=== PATIENT | female | born 1930 | race Caucasian/White ===

== ENCOUNTER 2017-04-30 08:55 | Outpatient (CLI) | payer MEDICARE, OTHER | END 2017-04-30 08:56 | disposition home or self-care (01) | LOC: BICMAMMO 08:55 | PROVIDERS: ATTEND Family Medicine | DX: Z12.31 Encounter for screening mammogram for malignant neoplasm of breast (principal); Z80.3 Family history of malignant neoplasm of breast | CPT/HCPCS: 77063; 77067 ==

== ENCOUNTER 2017-12-13 11:26 | Inpatient (IN) | payer MEDICARE, OTHER ==
[2017-12-13] MEDS ORDERED: Enoxaparin Sodium 60 MG/0.6 ML SYRINGE ONE (12:12)
[2017-12-13 12:23] LABS: #Eosinphils 0.1 thou/uL (0.0-0.7); #Lymphocytes 1.4 thou/uL (1.20-3.40); #Monocytes 0.5 thou/uL (0.11-0.59); #Neutrophils 5.2 thou/uL (1.40-6.50); %Basophils 0.6 % (0.0-1.0); %Eosinophils 1.2 % (0.0-10.0); %Monocytes 7.2 % (0.0-10.0); Hemoglobin 13.6 g/dL (12.0-16.0); Mean Corpuscular HGB CONC 32.2 g/dL (32.0-36.0); Mean Corpuscular Hemoglobin 30.4 pg (27.0-31.0); Mean Corpuscular Volume 94.5 fL (78.0-98.0); Mean Platelet Volume 7.7 fL (7.4-10.4); Platelet Count 313 thou/uL (130-400); RBC Distribution Width 11.7 % (11.5-14.5); Red Blood Cell (RBC) Count 4.49 mill/uL (4.20-5.40); White Blood Cell (WBC) Count 7.2 thou/uL (4.8-10.8)
[2017-12-13] MEDS ORDERED: Diltiazem 125 MG in Sodium Chloride 0.9% 100 ML IVPB SCH (12:30)
[2017-12-13 12:31] LABS: PTT 29.9 SEC (22.9-36.1)
[2017-12-13 12:32] LABS: INR-International Normal Ratio 1.1; Prothrombin Time 13.8 SEC (12.0-14.7)
[2017-12-13 12:48] LABS: ALT (SGPT) 11 U/L (8-55); AST (SGOT) 16 U/L (5-34); Albumin 4.1 g/dL (3.4-4.8); Alkaline Phosphatase 86 U/L (40-150); Anion Gap 11 mmol/L (10-20); BUN (Urea Nitrogen) 17 mg/dL (9.8-20.1); Bilirubin, Total 0.6 mg/dL (0.2-1.2); CK (CPK) 64 U/L (29-168); Calc. Creatinine Clearance 0 mL/min (70-130); Calcium 10.2 mg/dL (7.8-10.44); Carbon Dioxide 28 mmol/L (23-31); Chloride 105 mmol/L (98-107); Estimated GFR-MDRD 73; Globulin 3.4 g/dL (2.4-3.5); Glucose 112 mg/dL (83-110); Potassium 3.9 mmol/L (3.5-5.1); Protein, Total 7.5 g/dL (6.0-8.3); Sodium 140 mmol/L (136-145)
[2017-12-13 12:52] LABS: CKMB 3.7 ng/mL (0-6.6); Troponin I Less than 0.010 ng/mL (< 0.028)
--- NOTE | 2017-12-13 12:58 | RAD ---
CHEST 1 VIEW: HISTORY: Chest pain. COMPARISON: None available. FINDINGS: Cardiac silhouette is magnified and upper limits of normal in size. Pulmonary vasculature is unremar kable. Mediastinum is midline. No confluent airspace consolidation or evidence of pneumothorax. Ca rdiac monitor leads overlie the chest. IMPRESSION: No active cardiopulmonary abnormalities are demonstrated. POS: H
--- NOTE | 2017-12-13 14:19 | RAD ---
FRONTAL RADIOGRPAH CHEST: DATE: 12/13/2017. COMPARISON: Prior study on the same day. HISTORY: Syncope. FINDINGS: Heart and mediastinal contours demonstrate stable prominence of the cardiac silhouette. Stable incre ased linear interstitial density. No pneumothorax or pleural fluid. No focal consolidation or alveo lar edema. IMPRESSION: Stable appearance of the chest. POS: [facility]
--- NOTE | 2017-12-13 14:22 | HP ---
DATE OF ADMISSION: 12/13/2017 PRIMARY CARE PHYSICIAN: Jaydon Barker M.D. REASON FOR ADMISSION: Sent by primary care physician for new onset atrial fibrillation. HISTORY OF PRESENT ILLNESS: An 87-year-old female who has no significant medical history who went to see primary care physician today because she was subjectively feeling some UTI symptoms for the last 2-3 days. When primary care physician examined her, she was found with irregularity in her heart ra te, which was confirmed as atrial fibrillation after EKG done at primary care physician's office. Denson bsequently, this patient was transferred to emergency room for further evaluation. When she arrived to the emergency room, she was having atrial fibrillation with a slight RVR. She wa s given Cardizem bolus. After that, the patient had transient hypotension and syncope, which require d a few seconds of CPR in the emergency room, but the patient regained consciousness very quickly. A fter a few seconds chest compression, the patient was feeling soreness over her chest, but she did no t have any chest pain, palpitation, dizziness, syncope or shortness of breath before going to primary care physician's office. She did not have any fever. She denies any previous cardiac history. She denies any previous TIA or stroke. She denies any diabetes. The patient reports that by 87 years o f age, she is pretty much very active and she is able to do all routine activities of her life as wel l as yard work. She never had any dyspnea on exertion, orthopnea, PND or leg swelling. REVIEW OF SYSTEMS: The following complete review of systems was negative, unless otherwise mentioned in the HPI or below: Constitutional: Weight loss or gain, ability to conduct usual activities. Sk in: Rash, itching. Eyes: Double vision, pain. ENT/Mouth: Nose bleeding, neck stiffness, pain, te nderness. Cardiovascular: Palpitations, dyspnea on exertion, orthopnea. Respiratory: Shortness of breath, wheezing, cough, hemoptysis, fever or night sweats. Gastrointestinal: Poor appetite, abdom inal pain, heartburn, nausea, vomiting, constipation, or diarrhea. Genitourinary: Urgency, frequenc y, dysuria, nocturia. Musculoskeletal: Pain, swelling. Neurologic/Psychiatric: Anxiety, depressio n. Allergy/Immunologic: Skin rash, bleeding tendency. Please see my HPI for pertinent positive and negative. All other review of systems reviewed and negative except as mentioned in the HPI. PAST MEDICAL HISTORY: The patient reports that she has white coat hypertension, but she is not takin g any blood pressure medication because her blood pressure remains normal at home. PAST SURGICAL HISTORY: Reviewed and negative. PAST PSYCHIATRIC HISTORY: Reviewed and negative. SOCIAL HISTORY: The patient is , lives at home by herself. She has 2 sons who lives nearby [facility] as well as in [facility]. She denies any tobacco, alcohol or illicit drug abuse. FAMILY HISTORY: The patient denies any family history of coronary artery disease, stroke or cancer. ALLERGIES: No known drug allergy. CURRENT HOME MEDICATIONS: The patient is taking over the counter multivitamin 1 tablet daily, vitami n C 1 tablet daily, vitamin D3 one tablet daily and aspirin 81 mg daily. EMERGENCY ROOM COURSE: The patient was given Cardizem bolus 20 mg IV push, aspirin 324 mg, Lovenox 1 mg per kg. PHYSICAL EXAMINATION: VITAL SIGNS: On arrival, blood pressure 140/114, but after Cardizem bolus, her blood pressure droppe d to 69/48. At one point, her heart rate was 145, but when I saw, at that time her heart rate is 72 and irregular, respiratory rate 18, temperature 98.5, saturation 99% on room air, weight 63.5 kilogra ms. GENERAL: The patient is currently alert, awake, in no obvious acute distress. HEAD: Normocephalic, atraumatic. EYES: Pupils round and reactive to light. Extraocular muscle intact. ENT: Oropharynx within normal limits. Moist mucous membranes. No oral lesion, no pharyngeal erythe ma, no exudate. NECK: Supple. No JVD, no thyromegaly, no carotid bruit. LUNGS: Clear to auscultation without any rhonchi or rales. CARDIAC: S1, S2 irregularly irregular without any significant murmur. No gallop, no rub. ABDOMEN: Soft, bowel sounds present, nontender, nondistended. No organomegaly, no mass, no suprapub ic tenderness. BACK: Unremarkable. No CVA tenderness. EXTREMITIES: Upper extremities, passive movement of all joints are normal. Lower extremities, no ed tayler. Good distal pulsation. SKIN: No skin rash. HEMATOLOGICAL: No lymphadenopathy. NEUROLOGIC: Nonfocal examination. Speech, normal. Motor and sensation within normal limit. Reflex es symmetrical. Plantar bilateral flexor. SIGNIFICANT LABORATORY DATA: EKG initially showed atrial fibrillation with RVR. Subsequently, EKG s howed atrial fibrillation with a controlled ventricular response. CBC, WBC 7.2, hemoglobin 13.6, lakshmi telet 313,000. BMP, sodium 140, potassium 3.9, chloride 105, carbon dioxide 28, anion gap 11, BUN 17 , creatinine 0.75, glucose 112, calcium 10.2. LFT, AST 16, ALT 11, alkaline phosphatase 86, albumin 4.1. CK 64, CK-MB 3.7. Troponin I less than 0.010. BNP 246. INR 1.1. Chest x-ray based on my rev iew, no acute cardiopulmonary process. ASSESSMENT AND PLAN: 1. New onset atrial fibrillation. This patient has confirmed finding of atrial fibrillation on EKG. Initially, she was in rapid ventricular response, but after Cardizem bolus, she had transient hypot ension and syncopal episode. Currently, her rate is under control, but still she is in atrial fibril lation, onset is not certain. This patient has a high CHADS2-VASc score based on her age of 87, fema le sex, she has at least [address], she is at high risk for cardioembolic event. Risk a nd benefit of her long-term anticoagulation discussed with the patient. At this point, we will start with Lovenox 1 mg per kg subcu twice daily. Upon discharge, we will consider Eliquis. The patient' s rate is under control, so we will start metoprolol 25 mg twice daily and monitor on telemetry floor . We will obtain echocardiography to assess ejection fraction and other structural abnormality. We will check free T3 and free T4. We will do serial cardiac enzymes x2 to rule out acute coronary synd maximiliano. Cardiology will be consulted. 2. Elevated BNP, probably related with diastolic dysfunction from atrial fibrillation. We will chec k echocardiography. 3. Urinary tract infection symptoms. The patient subjectively feels urinary tract infection. We wi ll check urinalysis and urine culture. 4. Deep venous thrombosis prophylaxis. The patient is already on full dose of Lovenox therapy. 5. Gastrointestinal prophylaxis. Pepcid 20 mg p.o. b.i.d. 6. Code status: The patient is full code. The patient's son is surrogate decision maker. Disposition plan based on clinical course. We are expecting the patient's stay in hospital more than 48 hours. Plan of care discussed with the patient in detail at bedside.
[2017-12-13] MEDS ORDERED: Ondansetron PF 4 MG/2 ML Vial IVP PRN ×2 (15:19→15:26)
[2017-12-13] MEDS ORDERED: Ondansetron ODT 4 MG TAB SL PRN (15:19)
[2017-12-13] MEDS ORDERED: Acetaminophen 325 MG TAB PO PRN ×2 (15:19→15:26)
[2017-12-13] MEDS ORDERED: Bisacodyl 5 MG TAB PO PRN (15:26)
[2017-12-13] MEDS ORDERED: Sodium Chloride 0.65% Nasal 44 ML BOT EA NARE PRN (15:26)
[2017-12-13] MEDS ORDERED: Artificial Tears 18 DROP/0.9 ML EA EYE PRN (15:26)
[2017-12-13] MEDS ORDERED: Eucerin (Mineral Oil/Petrolatum,White) 30 gm Jar TOP PRN (15:26)
[2017-12-13] MEDS ORDERED: Ondansetron ODT 4 MG TAB PO PRN (15:26)
[2017-12-13] MEDS ORDERED: HYDROcodone/Acetaminophen 5/325 mg Tablet PO PRN (15:26)
[2017-12-13] MEDS ORDERED: Zolpidem Tartrate 5 MG TAB PO PRN (15:26)
[2017-12-13] MEDS ORDERED: Labetalol HCl 100 MG/20 ML VIAL SLOW IVP PRN (15:26)
[2017-12-13] MEDS ORDERED: Bisacodyl 10 MG SUPP PR PRN (15:26)
[2017-12-13] MEDS ORDERED: Cepastat Lozenges 1 LOZ PO PRN (15:26)
[2017-12-13] MEDS ORDERED: Loratadine 10 MG TAB PO PRN (15:26)
[2017-12-13] MEDS ORDERED: Diabetic Tussin 200 MG/10 ML UDCUP PO PRN (15:26)
[2017-12-13] MEDS ORDERED: Loperamide HCl 2 MG CAP PO PRN (15:26)
[2017-12-13] MEDS ORDERED: Senokot S 8.6-50 MG TAB PO PRN (15:26)
[2017-12-13] MEDS ORDERED: Calcium Carbonate 500 MG ChewTAB PO PRN (15:26)
[2017-12-13 15:31] VITALS: BMI 22.6
[2017-12-13 15:51] LABS: Troponin I Less than 0.010 ng/mL (< 0.028)
[2017-12-13 15:52] LABS: Bilirubin Negative (Negative); Blood, Urine Moderate (Negative); Clarity CLOUDY (Clear); Glucose, Urine (Dipstick) Negative (Negative); Leukocyte Large (Negative); Nitrite Negative (Negative); Protein, Urine (Dipstick) 30 mg/dL (Neg-Trace); Specific Gravity, Urine 1.014 (1.002-1.036); Urobilinogen 0.2 mg/dL (0.2-1.0)
[2017-12-13 15:55] LABS: Bacteria/HPF 2+ HPF (None Seen); Hyaline Casts/LPF 0-3 HYALINE CAST LPF (0-3 Hyaline); Pathc Cast-AUWi Flag 0.72 (0-2.49); Squamous Epithelial None Seen HPF (0-3)
[2017-12-13 16:14] LABS: Free T4 (Free Thyroxine) 1.08 ng/dL (0.70-1.48)
[2017-12-13 18:59] LABS: Troponin I Less than 0.010 ng/mL (< 0.028)
[2017-12-13] MEDS: Metoprolol Tartrate 25 MG TAB PO SCH (21:14)
[2017-12-13] MEDS: Famotidine 20 MG TAB PO SCH (21:14)
[2017-12-13] MEDS ORDERED: Enoxaparin Sodium 60 MG/0.6 ML SYRINGE SC SCH (23:00)
--- NOTE | 2017-12-14 04:07 | CON ---
DATE OF CONSULTATION: 12/13/2017 HISTORY OF PRESENT ILLNESS: Maria E Riley is a pleasant 87-year-old white female patient of Dr. Fany beatty. She went to see him today for UTI symptoms. She was found to be tachycardic with a fast heart r ate and EKG showed atrial fibrillation. She was sent to the emergency room. In the emergency room, she was given Cardizem 20 mg bolus. After that, she had transient hypotension and syncope and appare ntly required a few seconds of CPR and then she regained consciousness very quickly. She denies any history of chest pain, shortness of breath, syncope, PND, orthopnea, or leg edema. At times, she may become mildly short of breath with digging holes. PAST MEDICAL HISTORY: Blood pressure has been elevated in the past, but apparently is normal at home and so she is not taking antihypertensives. No history of diabetes or hypercholesterolemia. MEDICATIONS: Aspirin 81 daily. hypotension and bradycardia with Cardizem 20 mg IV. SOCIAL HISTORY: She does not smoke or drink. REVIEW OF SYSTEMS: Twelve-point review of systems, otherwise unremarkable. PHYSICAL EXAMINATION: VITAL SIGNS: Blood pressure 159/79, pulse of 109 regularly irregular. HEENT: PERRL. NECK: Supple. CHEST: Clear. CARDIAC: S1 and S2 are normal without any S3, S4 or murmurs. ABDOMEN: Normal bowel sounds without tenderness, organomegaly. EXTREMITIES: Revealed no clubbing, cyanosis, or edema. NEUROLOGIC: Grossly intact. SKIN: Warm and dry. LABORATORY DATA: EKG revealed atrial fibrillation with rate of 115 per minute. Another EKG revealed atrial fibrillation with a rate of 147 per minute. Sodium 140, potassium 3.9, chloride 105, carbon dioxide 28, BUN 17, creatinine 0.75. BNP 246.0. Troponin I is normal x3. TSH, T4, and free T3 are normal. CBC is normal. Urinalysis reveals 2+ bacteria with greater than 50 white cells. IMPRESSION: 1. Atrial fibrillation, unknown duration. Even with heart rates up to 147 per minute. She is asymp tomatic and certainly may have to had this for months or years. 2. Hypotension and bradycardia with Cardizem 20 mg IV. 3. Probable hypertension. 4. Urinary tract infection. PLAN: Situation was discussed with the patient and her daughter. Echocardiogram will be performed t o assess left ventricular function. She will be started on low dose metoprolol and hopes of having b sherita rate control. Currently, she is on Lovenox 1 mg/kg b.i.d., but consideration should be given t o an oral anticoagulant. We discussed electrical cardioversion; however, she appears to be totally a symptomatic with her atrial fibrillation and probably rate control and anticoagulation for the only t reatment that is needed.
[2017-12-14 05:36] LABS: #Eosinphils 0.1 thou/uL (0.0-0.7); #Lymphocytes 1.7 thou/uL (1.20-3.40); #Monocytes 0.6 thou/uL (0.11-0.59); #Neutrophils 4.3 thou/uL (1.40-6.50); %Basophils 0.4 % (0.0-1.0); %Lymphocytes 25.3 % (21.0-51.0); %Monocytes 8.4 % (0.0-10.0); %Neutrophils 63.9 % (42.0-75.0); Hemoglobin 12.7 g/dL (12.0-16.0); Mean Corpuscular HGB CONC 32.6 g/dL (32.0-36.0); Mean Corpuscular Hemoglobin 30.9 pg (27.0-31.0); Mean Corpuscular Volume 94.5 fL (78.0-98.0); Mean Platelet Volume 7.7 fL (7.4-10.4); Platelet Count 303 thou/uL (130-400); RBC Distribution Width 11.7 % (11.5-14.5); Red Blood Cell (RBC) Count 4.12 mill/uL (4.20-5.40); White Blood Cell (WBC) Count 6.7 thou/uL (4.8-10.8)
[2017-12-14 05:51] LABS: Anion Gap 10 mmol/L (10-20); BUN (Urea Nitrogen) 15 mg/dL (9.8-20.1); Calc. Creatinine Clearance 59 mL/min (70-130); Calcium 9.4 mg/dL (7.8-10.44); Carbon Dioxide 31 mmol/L (23-31); Chloride 104 mmol/L (98-107); Estimated GFR-MDRD 80; Glucose 94 mg/dL (83-110); Potassium 4.1 mmol/L (3.5-5.1); Sodium 141 mmol/L (136-145)
[2017-12-14] MEDS: cefTRIAXone\\ROCEPHIN 1 GM in Sodium Chloride 0.9% 100 ML IVPB SCH (06:47)
[2017-12-14] MEDS: Famotidine 20 MG TAB PO SCH ×2 (08:25→22:17)
[2017-12-14] MEDS: Metoprolol Tartrate 25 MG TAB PO SCH (08:25)
[2017-12-14] MEDS ORDERED: Enoxaparin Sodium 60 MG/0.6 ML SYRINGE SC SCH (09:00)
--- NOTE | 2017-12-14 09:23 | PDOC.PN ---
- Subjective Encounter Start Date: 12/14/17 Encounter Start Time: 07:20 -: old records requested/rev Patient seen and examined. No new complaints. No overnight events this morning she was in RVR, but she was asymptomatic - Objective Resuscitation Status: Resuscitation Status FULL:Full Resuscitation MAR Reviewed: Yes Vital Signs & Weight: Vital Signs (12 hours) Temp Pulse Resp BP Pulse Ox 12/14/17 08:00 97.8 F 107 H 18 147/73 H 99 12/14/17 04:00 98.1 F 83 16 130/82 96 12/14/17 00:00 98.6 F 86 18 137/77 96 Weight Weight 133 lb 12.8 oz I&O: 12/13/17 12/14/17 12/15/17 06:59 06:59 06:59 Intake Total 250 Balance 250 Result Diagrams: 12/14/17 05:12 12/14/17 05:12 EKG Reviewed by me: Yes (afib with rvr) Phys Exam - Physical Examination Constitutional: NAD HEENT: PERRLA, moist MMs, sclera anicteric Neck: no JVD, supple Respiratory: no wheezing, no rales, no rhonchi Cardiovascular: no significant murmur, irregular Gastrointestinal: soft, non-tender, no distention, positive bowel sounds Musculoskeletal: no edema, pulses present Neurological: non-focal, normal sensation, moves all 4 limbs Lymphatic: no nodes Psychiatric: normal affect, A&O x 3 Skin: no rash, normal turgor Dx/Plan (1) New onset atrial fibrillation Code(s): I48.91 - UNSPECIFIED ATRIAL FIBRILLATION Status: Acute Comment: with intermittent RVR (2) UTI (urinary tract infection) Status: Acute - Plan cont current plan of care, continue antibiotics * cardiology recommendation noted * continue lovenox * will start rocephin for UTI * she may need cardioversion vs antiarrythmic meds * continue metoprolol 50 mg po bid * echo will be done today. Review of Systems - Review of Systems ENT: negative: Ear Pain, Ear Discharge, Nose Pain, Nose Discharge, Nose Congestion, Mouth Pain, Mouth Swelling, Throat Pain, Throat Swelling, Other Respiratory: negative: Cough, Dry, Shortness of Breath, Hemoptysis, SOB with Excertion, Pleuritic Pain, Sputum, Wheezing Cardiovascular: negative: chest pain, palpitations, orthopnea, paroxysmal nocturnal dyspnea, edema, light headedness, other Gastrointestinal: negative: Nausea, Vomiting, Abdominal Pain, Diarrhea, Constipation, Melena, Hematochezia, Other Genitourinary: Dysuria, Frequency. negative: Incontinence, Hematuria, Retention , Other Musculoskeletal: negative: Neck Pain, Shoulder Pain, Arm Pain, Back Pain, Hand Pain, Leg Pain, Foot Pain, Other - Medications/Allergies Allergies/Adverse Reactions: Allergies Allergy/AdvReac Type Severity Reaction Status Date / Time diltiazem [From Cardizem] Allergy Verified 12/13/17 18:46 Medications: Current Medications Acetaminophen (Tylenol) 650 mg PO Q4H PRN PRN Reason: Headache/Fever/Mild Pain (1-3) Hydrocodone Bitart/Acetaminophen ([place] 5/325) 1 tab PO Q4H PRN PRN Reason: Moderate Pain (4-6) Artificial Tears (Tears Naturale) 2 drop EA EYE PRN PRN PRN Reason: Dry Eyes Bisacodyl (Dulcolax) 10 mg PO DAILYPRN PRN PRN Reason: Constipation Bisacodyl (Dulcolax) 10 mg CA DAILYPRN PRN PRN Reason: Constipation Calcium Carbonate (Tums) 1,000 mg PO Q4H PRN PRN Reason: Heartburn or Indigestion Enoxaparin Sodium (Lovenox) 60 mg SC 0900,2100 [facility] Last Admin: 12/14/17 08:24 Dose: 60 mg Famotidine (Pepcid) 20 mg PO BID [facility] Last Admin: 12/14/17 08:25 Dose: 20 mg Guaifenesin (Robitussin Sf) 200 mg PO Q4H PRN PRN Reason: Cough Ceftriaxone Sodium 1 gm/ (Sodium Chloride) 100 mls @ 200 mls/hr IVPB Q24HR [facility] Last Admin: 12/14/17 06:47 Dose: 100 mls Labetalol HCl (Normodyne) 10 mg SLOW IVP Q4H PRN PRN Reason: SBP Greater Than 170 Loperamide HCl (Imodium) 2 mg PO PRN PRN PRN Reason: Diarrhea/Loose Stools Loratadine (Claritin) 10 mg PO DAILYPRN PRN PRN Reason: Sinus Symptoms Metoprolol Tartrate (Lopressor) 25 mg PO BID [facility] Last Admin: 12/14/17 08:25 Dose: 25 mg Mineral Oil/White Petrolatum (Eucerin Cream) 0 gm TOP BIDPRN PRN PRN Reason: Dry Skin Ondansetron HCl (Zofran Odt) 4 mg PO Q6H PRN PRN Reason: Nausea/Vomiting Ondansetron HCl (Zofran) 4 mg IVP Q6H PRN PRN Reason: Nausea/Vomiting Senna/Docusate Sodium (Senokot S) 2 tab PO BID PRN PRN Reason: Constipation Sodium Chloride ([place] Nasal [place] 0.65%) 0 ml EA NARE QIDPRN PRN PRN Reason: Nasal Congestion Throat Lozenges (Cepastat Lozenges) 1 ameena PO Q2H PRN PRN Reason: Sore Throat Zolpidem Tartrate (Ambien) 5 mg PO HSPRN PRN PRN Reason: Insomnia
[2017-12-14] MEDS ORDERED: Metoprolol Tartrate 50 MG TAB PO SCH (21:00)
[2017-12-14] MEDS: Metoprolol Tartrate 50 MG TAB PO SCH (22:19)
[2017-12-15 05:51] LABS: Platelet Count 289 thou/uL (130-400)
[2017-12-15] MEDS: cefTRIAXone\\ROCEPHIN 1 GM in Sodium Chloride 0.9% 100 ML IVPB SCH (06:06)
[2017-12-15] MEDS: Rivaroxaban 10 MG TAB PO SCH (08:19)
[2017-12-15] MEDS: Metoprolol Tartrate 50 MG TAB PO SCH (08:20)
[2017-12-15] MEDS: Famotidine 20 MG TAB PO SCH ×2 (08:20→20:33)
--- NOTE | 2017-12-15 09:58 | PDOC.PN ---
- Subjective Encounter Start Date: 12/15/17 Encounter Start Time: 08:00 Patient seen and examined. No new complaints. No overnight events - Objective Resuscitation Status: Resuscitation Status FULL:Full Resuscitation MAR Reviewed: Yes Vital Signs & Weight: Vital Signs (12 hours) Temp Pulse Resp BP Pulse Ox 12/15/17 07:45 98 F 102 H 18 169/93 H 96 12/15/17 04:00 98.0 F 84 16 133/86 95 Weight Weight 135 lb 8 oz I&O: 12/14/17 12/15/17 12/16/17 06:59 06:59 06:59 Intake Total 250 1750 Balance 250 1750 Result Diagrams: 12/15/17 05:07 12/14/17 05:12 Radiology Reviewed by me: Yes (echo, MR, systolic dysfunction) EKG Reviewed by me: Yes (afib) Phys Exam - Physical Examination Constitutional: NAD HEENT: PERRLA, moist MMs, sclera anicteric Neck: no JVD, supple Respiratory: no wheezing, no rales, no rhonchi Cardiovascular: no significant murmur, irregular Gastrointestinal: soft, non-tender, no distention, positive bowel sounds Musculoskeletal: no edema, pulses present Neurological: non-focal, normal sensation, moves all 4 limbs Psychiatric: normal affect, A&O x 3 Skin: no rash, normal turgor Dx/Plan (1) New onset atrial fibrillation Code(s): I48.91 - UNSPECIFIED ATRIAL FIBRILLATION Status: Acute Comment: with intermittent RVR (2) UTI (urinary tract infection) Status: Acute (3) Elevated brain natriuretic peptide (BNP) level Code(s): R79.89 - OTHER SPECIFIED ABNORMAL FINDINGS OF BLOOD CHEMISTRY Status : Acute (4) Moderate mitral regurgitation Code(s): I34.0 - NONRHEUMATIC MITRAL (VALVE) INSUFFICIENCY Status: Acute (5) Systolic dysfunction Code(s): I51.9 - HEART DISEASE, UNSPECIFIED Status: Acute - Plan cont current plan of care, plan discussed w/ family, continue antibiotics * metoprolol dose increased * started on xarelto * medication reviewed as below * symptomatic treatment * discussed with daughter * continue rocephin. * add lisinopril Review of Systems - Review of Systems Eyes: negative: Pain, Vision Change, Conjunctivae Inflammation, Eyelid Inflammation, Redness, Other ENT: negative: Ear Pain, Ear Discharge, Nose Pain, Nose Discharge, Nose Congestion, Mouth Pain, Mouth Swelling, Throat Pain, Throat Swelling, Other Respiratory: negative: Cough, Dry, Shortness of Breath, Hemoptysis, SOB with Excertion, Pleuritic Pain, Sputum, Wheezing Cardiovascular: negative: chest pain, palpitations, orthopnea, paroxysmal nocturnal dyspnea, edema, light headedness, other Gastrointestinal: negative: Nausea, Vomiting, Abdominal Pain, Diarrhea, Constipation, Melena, Hematochezia, Other Genitourinary: negative: Dysuria, Frequency, Incontinence, Hematuria, Retention , Other Musculoskeletal: negative: Neck Pain, Shoulder Pain, Arm Pain, Back Pain, Hand Pain, Leg Pain, Foot Pain, Other - Medications/Allergies Allergies/Adverse Reactions: Allergies Allergy/AdvReac Type Severity Reaction Status Date / Time diltiazem [From [facility]] Allergy Verified 12/13/17 18:46 Medications: Current Medications Acetaminophen (Tylenol) 650 mg PO Q4H PRN PRN Reason: Headache/Fever/Mild Pain (1-3) Hydrocodone Bitart/Acetaminophen ([place] 5/325) 1 tab PO Q4H PRN PRN Reason: Moderate Pain (4-6) Artificial Tears (Tears Naturale) 2 drop EA EYE PRN PRN PRN Reason: Dry Eyes Bisacodyl (Dulcolax) 10 mg PO DAILYPRN PRN PRN Reason: Constipation Bisacodyl (Dulcolax) 10 mg CA DAILYPRN PRN PRN Reason: Constipation Calcium Carbonate (Tums) 1,000 mg PO Q4H PRN PRN Reason: Heartburn or Indigestion Famotidine (Pepcid) 20 mg PO BID [facility] Last Admin: 12/15/17 08:20 Dose: 20 mg Guaifenesin (Robitussin Sf) 200 mg PO Q4H PRN PRN Reason: Cough Ceftriaxone Sodium 1 gm/ (Sodium Chloride) 100 mls @ 200 mls/hr IVPB Q24HR [facility] Last Admin: 12/15/17 06:06 Dose: 100 mls Labetalol HCl (Normodyne) 10 mg SLOW IVP Q4H PRN PRN Reason: SBP Greater Than 170 Loperamide HCl (Imodium) 2 mg PO PRN PRN PRN Reason: Diarrhea/Loose Stools Loratadine (Claritin) 10 mg PO DAILYPRN PRN PRN Reason: Sinus Symptoms Metoprolol Tartrate (Lopressor) 75 mg PO BID [facility] Last Admin: 12/15/17 08:20 Dose: 75 mg Mineral Oil/White Petrolatum (Eucerin Cream) 0 gm TOP BIDPRN PRN PRN Reason: Dry Skin Ondansetron HCl (Zofran Odt) 4 mg PO Q6H PRN PRN Reason: Nausea/Vomiting Ondansetron HCl (Zofran) 4 mg IVP Q6H PRN PRN Reason: Nausea/Vomiting Rivaroxaban (Xarelto) 20 mg PO DAILY [facility] Last Admin: 12/15/17 08:19 Dose: 20 mg Senna/Docusate Sodium (Senokot S) 2 tab PO BID PRN PRN Reason: Constipation Sodium Chloride ([place] Nasal [place] 0.65%) 0 ml EA NARE QIDPRN PRN PRN Reason: Nasal Congestion Throat Lozenges (Cepastat Lozenges) 1 ameena PO Q2H PRN PRN Reason: Sore Throat Zolpidem Tartrate (Ambien) 5 mg PO HSPRN PRN PRN Reason: Insomnia
[2017-12-15] MEDS: Metoprolol Tartrate 100 MG TAB PO SCH (20:33)
[2017-12-16 05:03] VITALS: TEMP 97.9
[2017-12-16] MEDS: cefTRIAXone\\ROCEPHIN 1 GM in Sodium Chloride 0.9% 100 ML IVPB SCH (05:13)
[2017-12-16] MEDS: Metoprolol Tartrate 100 MG TAB PO SCH (08:41)
[2017-12-16] MEDS: Rivaroxaban 10 MG TAB PO SCH (08:42)
[2017-12-16] MEDS: Famotidine 20 MG TAB PO SCH (08:42)
[2017-12-16] MEDS ORDERED: Lisinopril 5 MG TAB PO SCH (09:00)
--- NOTE | 2017-12-16 09:46 | PDOC.PN ---
- Subjective Encounter Start Date: 12/16/17 Encounter Start Time: 07:05 Patient seen and examined. No new complaints. No overnight events - Objective Resuscitation Status: Resuscitation Status FULL:Full Resuscitation MAR Reviewed: Yes Vital Signs & Weight: Vital Signs (12 hours) Temp Pulse Resp BP Pulse Ox 12/16/17 08:40 92 12/16/17 04:00 97.9 F 76 16 140/70 93 L 12/16/17 00:00 98 F 81 16 132/67 92 L Weight Weight 138 lb 14.4 oz I&O: 12/15/17 12/16/17 12/17/17 06:59 06:59 06:59 Intake Total 1750 1760 Balance 1750 1760 Result Diagrams: 12/15/17 05:07 12/14/17 05:12 EKG Reviewed by me: Yes Phys Exam - Physical Examination Constitutional: NAD HEENT: PERRLA, moist MMs, sclera anicteric Neck: no JVD, supple Respiratory: no wheezing, no rales, no rhonchi Cardiovascular: no significant murmur, irregular Gastrointestinal: soft, non-tender, no distention, positive bowel sounds Musculoskeletal: no edema, pulses present Neurological: non-focal, normal sensation, moves all 4 limbs Psychiatric: normal affect, A&O x 3 Skin: no rash, normal turgor Dx/Plan (1) New onset atrial fibrillation Code(s): I48.91 - UNSPECIFIED ATRIAL FIBRILLATION Status: Acute Comment: with intermittent RVR (2) UTI (urinary tract infection) Status: Acute (3) Elevated brain natriuretic peptide (BNP) level Code(s): R79.89 - OTHER SPECIFIED ABNORMAL FINDINGS OF BLOOD CHEMISTRY Status : Acute (4) Moderate mitral regurgitation Code(s): I34.0 - NONRHEUMATIC MITRAL (VALVE) INSUFFICIENCY Status: Acute (5) Systolic dysfunction Code(s): I51.9 - HEART DISEASE, UNSPECIFIED Status: Acute - Plan cont current plan of care, continue antibiotics * medication reviewed as below * symptomatic treatment * see discharge marlen. Review of Systems - Review of Systems ENT: negative: Ear Pain, Ear Discharge, Nose Pain, Nose Discharge, Nose Congestion, Mouth Pain, Mouth Swelling, Throat Pain, Throat Swelling, Other Respiratory: negative: Cough, Dry, Shortness of Breath, Hemoptysis, SOB with Excertion, Pleuritic Pain, Sputum, Wheezing Cardiovascular: negative: chest pain, palpitations, orthopnea, paroxysmal nocturnal dyspnea, edema, light headedness, other Gastrointestinal: negative: Nausea, Vomiting, Abdominal Pain, Diarrhea, Constipation, Melena, Hematochezia, Other Genitourinary: negative: Dysuria, Frequency, Incontinence, Hematuria, Retention , Other Musculoskeletal: negative: Neck Pain, Shoulder Pain, Arm Pain, Back Pain, Hand Pain, Leg Pain, Foot Pain, Other - Medications/Allergies Allergies/Adverse Reactions: Allergies Allergy/AdvReac Type Severity Reaction Status Date / Time diltiazem [From Cardizem] Allergy Verified 12/13/17 18:46 Medications: Current Medications Acetaminophen (Tylenol) 650 mg PO Q4H PRN PRN Reason: Headache/Fever/Mild Pain (1-3) Hydrocodone Bitart/Acetaminophen ([place]oddard 5/325) 1 tab PO Q4H PRN PRN Reason: Moderate Pain (4-6) Artificial Tears (Tears Naturale) 2 drop EA EYE PRN PRN PRN Reason: Dry Eyes Bisacodyl (Dulcolax) 10 mg PO DAILYPRN PRN PRN Reason: Constipation Bisacodyl (Dulcolax) 10 mg ID DAILYPRN PRN PRN Reason: Constipation Calcium Carbonate (Tums) 1,000 mg PO Q4H PRN PRN Reason: Heartburn or Indigestion Famotidine (Pepcid) 20 mg PO BID [facility] Last Admin: 12/16/17 08:42 Dose: 20 mg Guaifenesin (Robitussin Sf) 200 mg PO Q4H PRN PRN Reason: Cough Ceftriaxone Sodium 1 gm/ (Sodium Chloride) 100 mls @ 200 mls/hr IVPB Q24HR [facility] Last Admin: 12/16/17 05:13 Dose: 100 mls Labetalol HCl (Normodyne) 10 mg SLOW IVP Q4H PRN PRN Reason: SBP Greater Than 170 Lisinopril (Zestril) 5 mg PO DAILY [facility] Last Admin: 12/16/17 08:40 Dose: 5 mg Loperamide HCl (Imodium) 2 mg PO PRN PRN PRN Reason: Diarrhea/Loose Stools Loratadine (Claritin) 10 mg PO DAILYPRN PRN PRN Reason: Sinus Symptoms Metoprolol Tartrate (Lopressor) 100 mg PO BID [facility] Last Admin: 12/16/17 08:41 Dose: 100 mg Mineral Oil/White Petrolatum (Eucerin Cream) 0 gm TOP BIDPRN PRN PRN Reason: Dry Skin Ondansetron HCl (Zofran Odt) 4 mg PO Q6H PRN PRN Reason: Nausea/Vomiting Ondansetron HCl (Zofran) 4 mg IVP Q6H PRN PRN Reason: Nausea/Vomiting Rivaroxaban (Xarelto) 20 mg PO DAILY [facility] Last Admin: 12/16/17 08:42 Dose: 20 mg Senna/Docusate Sodium (Senokot S) 2 tab PO BID PRN PRN Reason: Constipation Sodium Chloride ([employer] Nasal [place] 0.65%) 0 ml EA NARE QIDPRN PRN PRN Reason: Nasal Congestion Throat Lozenges (Cepastat Lozenges) 1 ameena PO Q2H PRN PRN Reason: Sore Throat Zolpidem Tartrate (Ambien) 5 mg PO HSPRN PRN PRN Reason: Insomnia
[2017-12-16 10:39] VITALS: BP 153/89
--- NOTE | 2017-12-16 11:44 | DIS ---
DATE OF ADMISSION: 12/13/2017 DATE OF DISCHARGE: 12/16/2017 PRIMARY CARE PHYSICIAN: Jaydon Barker M.D. DISCHARGE DISPOSITION: Home. PRIMARY DISCHARGE DIAGNOSES: New onset atrial fibrillation with rapid ventricular response, urinary tract infection, moderate mitral regurgitation and systolic dysfunction. SECONDARY DISCHARGE DIAGNOSIS: None. PRIMARY PROCEDURE AND OPERATION: None. RADIOLOGICAL INVESTIGATION: Chest x-ray was normal. Echocardiography showed moderate mitral regurgi tation and EF of 45%-50%. SIGNIFICANT LABORATORY DATA: WBC 6.7, hemoglobin 12.7, platelets 303. INR 1.1. Sodium 141, potassi um 4.1, BUN 15, creatinine 0.70, calcium 9.4. Cardiac enzymes negative x3. BNP 246.0. Thyroid func tion test normal. Urinalysis suggestive of UTI. Urine culture grew Streptococcus. DISCHARGE MEDICATIONS: Ciprofloxacin 500 mg p.o. b.i.d. for 5 days, lisinopril 5 mg p.o. daily, Lopr essor 100 mg p.o. b.i.d., Xarelto 20 mg p.o. daily. CONTRAINDICATIONS: None. CODE STATUS: FULL CODE. INPATIENT CONSULTANTS: Dr. Proctor was following while in hospital. TEST RESULTS PENDING ON DISCHARGE: None. ALLERGIES: CARDIZEM. DISCHARGE PLAN: Post hospital, the patient will follow up with Dr. Proctor and primary care corey godoy as instructed. HOSPITAL COURSE: An 87-year-old female who has no medical problems. She went to see primary care ph ysician for her recent UTI symptoms. On examination, primary care physician discovered irregular hea rt rate and the EKG showed atrial fibrillation with RVR. The patient was sent to ER. Patient was gi erika Cardizem bolus and after that the patient had transient hypotension and syncope and required diez sient CPR and patient regained consciousness very quickly. Subsequently, the patient did not require any Cardizem drip or any other calcium channel max, but patient's rate was controlled with metop rolol. We increased dose from 25-100 mg p.o. b.i.d. with this patient. Heart rate is under control. For chronic anticoagulation, we started initially Lovenox and subsequently changed to Xarelto. Nia khan's urinary tract infection was treated with Rocephin while in hospital and on discharge we change d to Cipro. The patient had echocardiography, which showed systolic dysfunction that was related wit h her prolonged atrial fibrillation with rapid ventricular response. We started lisinopril as well f or her hypertension. Thyroid function test was normal. The patient is doing very well. She is asymptomatic. She is inst ructed to follow up with primary care physician as well as Dr. Proctor as instructed. The patient is seen and examined at bedside today. Please see my progress note from today for furthe r detail. All new medication prescription given to her pharmacy.
== END 2017-12-16 11:03 | disposition home or self-care (01) | DRG 309 ==
LOC: ERS 11:26 → 2NO 15:10
PROVIDERS: ADMIT Internal Medicine; ATTEND Internal Medicine
DX: I48.91 Unspecified atrial fibrillation (principal); N39.0 Urinary tract infection, site not specified; I34.0 Nonrheumatic mitral (valve) insufficiency; Z88.8 Allergy status to other drugs, medicaments and biological substances; Z79.899 Other long term (current) drug therapy; Z79.82 Long term (current) use of aspirin; B95.5 Unspecified streptococcus as the cause of diseases classified elsewhere; I95.9 Hypotension, unspecified; I10 Essential (primary) hypertension; I51.9 Heart disease, unspecified; R79.89 Other specified abnormal findings of blood chemistry
CPT/HCPCS: 36415; 71045; 80048; 80053; 82553; 83880; 84439; 84443; 84481; 84484; 85014; 85018; 85025; 85049; 85610; 85730; 87077; 87086; 93005; 93306; 96372; 96374; J0696; J1650; J7050

== ENCOUNTER 2018-05-02 08:44 | Outpatient (CLI) | payer MEDICARE ==
--- NOTE | 2018-05-18 15:48 | MMO ---
Bilateral MAMMO Bilat Screen [facility]. CLINICAL HISTORY: Patient is 87 years old and is seen for screening. The patient has the following family history of breast cancer: mother, at age 65. The patient has no personal history of cancer. VIEWS: The views performed were: bilateral craniocaudal with tomosynthesis and bilateral mediolateral oblique with tomosynthesis. FILMS COMPARED: The present examination has been compared to prior imaging studies performed at [facility] on 03/11/1998, 03/18/1999, 03/23/2000, 03/24/2001, 03/27/2002, 03/28/2003, 03/31/2004, 04/01/2005, 04/02/2006, 04/15/2007, 04/17/2008, 04/18/2009, 04/21/2010, 04/23/2011, 04/25/2012, 04/26/2013, 04/27/2014, 04/29/2015, 04/29/2016 and 04/30/2017. MAMMOGRAM FINDINGS: The breasts are heterogeneously dense, which could obscure a lesion on mammography. There are stable benign appearing calcifications seen in both breasts. There are no suspicious masses, suspicious calcifications, or new areas of architectural distortion. IMPRESSION: THERE IS NO MAMMOGRAPHIC EVIDENCE OF MALIGNANCY. A ROUTINE FOLLOW-UP MAMMOGRAM IN 1 YEAR IS RECOMMENDED. THE RESULTS OF THIS EXAM WERE SENT TO THE PATIENT. ACR BI-RADS Category 2 - Benign finding MAMMOGRAPHY NOTE: 1. A negative mammogram report should not delay a biopsy if a dominant of clinically suspicious mass is present. 2. Approximately 10% to 15% of breast cancers are not detected by mammography. 3. Adenosis and dense breasts may obscure an underlying neoplasm.
== END 2018-05-02 08:45 | disposition home or self-care (01) ==
LOC: BICMAMMO 08:44
PROVIDERS: ATTEND Family Medicine
DX: Z12.31 Encounter for screening mammogram for malignant neoplasm of breast (principal); Z80.3 Family history of malignant neoplasm of breast
CPT/HCPCS: 77063; 77067

== ENCOUNTER 2019-06-08 09:03 | Outpatient (CLI) | payer MEDICARE ==
--- NOTE | 2019-06-08 10:26 | MMO ---
Bilateral MAMMO Bilat Screen [facility]. CLINICAL HISTORY: Patient is 88 years old and is seen for screening. VIEWS: The views performed were: . FILMS COMPARED: The present examination has been compared to prior imaging studies performed at [facility] on 04/29/2016, 04/30/2017 and 05/02/2018. This study has been interpreted with the assistance of computer-aided detection. MAMMOGRAM FINDINGS: The breasts are heterogeneously dense, which could obscure a lesion on mammography. Benign calcifications are noted bilaterally. There are no suspicious masses, suspicious calcifications, or new areas of architectural distortion. IMPRESSION: THERE IS NO MAMMOGRAPHIC EVIDENCE OF MALIGNANCY. A ROUTINE FOLLOW-UP MAMMOGRAM IN 1 YEAR IS RECOMMENDED. THE RESULTS OF THIS EXAM WERE SENT TO THE PATIENT. ACR BI-RADS Category 2 - Benign finding MAMMOGRAPHY NOTE: 1. A negative mammogram report should not delay a biopsy if a dominant of clinically suspicious mass is present. 2. Approximately 10% to 15% of breast cancers are not detected by mammography. 3. Adenosis and dense breasts may obscure an underlying neoplasm. Reported by: Nnamdi HELTON Electonically Signed: [id number]
== END 2019-06-08 09:04 | disposition home or self-care (01) ==
LOC: BICMAMMO 09:03
PROVIDERS: ATTEND Family Medicine
DX: Z12.31 Encounter for screening mammogram for malignant neoplasm of breast (principal)
CPT/HCPCS: 77063; 77067